=== PATIENT | male | born 1995 | race Caucasian/White ===

== ENCOUNTER 2021-09-20 14:07 | Emergency (ER) | payer OTHER, MEDICAID, SELFPAY ==
[2021-09-20 14:16] VITALS: BP 145/75; PULSE 87; RESP 16; TEMP 36.8; O2SAT 98; BMI 32.3
--- NOTE | 2021-09-20 14:20 | DI.RAD.S_ITS ---
PROCEDURE: XR ANKLE RT MIN 3V INDICATIONS: tripped, felt pop TECHNIQUE: 3 views of the ankle were acquired. COMPARISON: None. FINDINGS: Bones: No fractures or dislocations. Ankle mortise is normally aligned. No suspicious bony lesions. Soft tissues: No tibiotalar joint effusion. Achilles tendon appears normal. IMPRESSION: No acute finding. Dictated by: Figueroa Maldonado M.D. on 09/20/2021 at 14:48 Approved by: Figueroa Maldonado M.D. on 09/20/2021 at 14:49
--- NOTE | 2021-09-20 15:20 | ED_ITS ---
HPI - Extremity Injury (Lower) General Chief Complaint: Extremity Injury, Lower Stated Complaint: right ankle hurts Time Seen by Provider: 09/20/21 14:20 Source: patient Mode of arrival: Ambulatory History of Present Illness HPI Narrative: 26-year-old male nonsmoker with noncontributory medical history presents with a friend and a chief complaint of a right ankle injury suffered last night. He was walking when he inverted his right ankle and now has pain with ambulation. He was evaluated by the medics out on [place] and encouraged to come be seen for an x-ray. He denies any numbness, tingling or weakness. He has no knee or hip pain and is otherwise well and free of complaint Related Data Home Medications Medication Instructions Recorded Confirmed ACETAMINOPHEN 0 mg PO Q4HP #0 03/28/12 Previous Rx's Medication Instructions Recorded DIPHENHYDRAMINE HCL 50 mg PO PRN #10 tab 03/10/13 (Diphenhydramine Hydrochloride) EPINEPHRINE (#EPI EZ PEN) 1 mg IM PRN #1 syr 03/10/13 albuterol sulfate 90 mcg/actuation 1 puff INH Q4HP PRN #18 gm 02/28/16 aerosol inhaler (Ventolin HFA) ondansetron 8 mg disintegrating 8 mg SUBLINGUAL TID #12 odt 05/12/16 tablet (Zofran ODT) fluticasone propionate 50 1 spray INTRANASAL QDAY #1 bot 01/14/17 mcg/actuation nasal spray,suspension (Flonase Allergy Relief) sumatriptan succinate 100 mg 100 mg PO PRN PRN #9 tab 01/14/17 tablet (Imitrex) Allergies Allergy/AdvReac Type Severity Reaction Status Date / Time latex [LATEX] Allergy Unknown Unverified 10/13/17 13:10 brissa [BRISSA] Allergy Unknown Unverified 10/13/17 13:10 Review of Systems Review of Systems Narrative: GENERAL: Denies chills, fatigue, malaise, fever, sweats. HEENT: Denies sinus pain, ear pain, sore throat, difficulty swallowing, dizziness. RESPIRATORY: Denies dyspnea, cough, wheezing, hemoptysis, sputum. CARDIOVASCULAR: Denies chest pain, palpitations, orthopnea, edema, GASTROINTESTINAL: Denies nausea, vomiting, abdominal pain, diarrhea, constipation, melena. : Denies dysuria, frequency, incontinence, hematuria, urinary retention. MUSCULOSKELETAL: See HPI SKIN: Denies rash, skin lesions, or other NEUROLOGIC: Denies weakness, headache, numbness, change in speech, confusion, seizures, incoordination. PSYCHIATRIC: No concerning psychosocial issues. 12 point review of systems is negative except for those stated above Patient History Social History Smoking Status: Never smoker Smoking Status: Never smoker alcohol intake frequency: 0-2 drinks per day Substance Use Type: does not use Exam Narrative Exam Narrative: GEN: AOx3 and in mild distress EYES: Pupils are equal, round, and reactive to light and accommodation. E xtraoccular muscles are intact bilaterally. There is no subconjunctival hemorrhage or exudate. CHEST: Lungs are clear to auscultation bilaterally and free of wheezes, rales, or rhonchi. Heart rate is regular rhythm, there are no murmurs, clicks, rubs, or gallops. There is no chest wall tenderness. ABD: Abdomen is soft and nontender. There is no guarding or rebound. Bowel sounds are normal in all 4 quadrants. There is no mass or organomegaly. EXT: Full but painful range of motion of the right ankle, no ligamentous laxity, no obvious swelling or deformity. This is closed, isolated and tony rovascularly intact SKIN: Warm, pink, and dry. No erythema or rash Initial Vital Signs Initial Vital Signs: Vital Signs Temperature 98.3 F 09/20/21 14:16 Pulse Rate 87 09/20/21 14:16 Respiratory Rate 16 09/20/21 14:16 Blood Pressure 145/75 H 09/20/21 14:16 Pulse Oximetry 98 09/20/21 14:16 Course Orders Ordered: ED Orders 09/20/21 14:20 XR ankle RT min 3V Stat Vital Signs Vital signs: Vital Signs - 8 hr 09/20/21 14:16 Temperature 98.3 F Pulse Rate 87 Respiratory Rate 16 Blood Pressure 145/75 H Pulse Oximetry 98 MDM - Extremity Injury (Lower) Imaging Data Extremity x-ray #1: Radiologist's Impression: Juan Pablo Vargas??26??M??1995 ? Allergy/Adv: latex, brissa Close Ankle X-Ray (Signed) Figueroa Maldonado - 09/20/21 Launch?Image [address] [address] XRay Report Signed Patient: Juan Pablo Vargas MR#: [id number] : 1995 Acct:[id number] Age/Sex: 26 / M Date of Service: 09/20/21 Loc: ED Accession Number: [id number] ?? Procedure: XR ankle RT min 3V Ordering Provider: Tommy Lyon D.O. PROCEDURE:? XR ANKLE RT MIN 3V ? INDICATIONS:? tripped, felt pop ? TECHNIQUE:? 3 views of the ankle were acquired.? ? COMPARISON:? None. ? FINDINGS:? ? Bones:? No fractures or dislocations.? Ankle mortise is normally aligned.? No suspicious bony lesions.? ? Soft tissues:? No tibiotalar joint effusion.? Achilles tendon appears normal.? ? ? IMPRESSION:? No acute finding. ? Dictated by: Figueroa Maldonado M.D. on 09/20/2021 at 14:48 ? ? Approved by: Figueroa Maldonado M.D. on 09/20/2021 at 14:49 ? Discharge Plan Departure Patient Disposition: Home Clinical Impression: Inversion sprain of right ankle Instructions: DI for Ankle Sprain Activity Restrictions/Additional Instructions: *You have been diagnosed with [right ankle sprain. Your history and physical exam are reassuring. X-ray demonstrates no fracture or dislocation *What to do: *Please continue to take your regular medications as directed. [ ] New medication prescriptions sent to your pharmacy: [ ] [ ] New medication written as a paper prescription [ ] No new medications given *Please follow up with your primary care provider in 2-3 days, call for an appointment. Let them know you were seen in the Emergency Department and that we ask that you be seen in follow up. We will electronically transmit a record of today's note if your PCP is in our system *If you do not have a primary care provider please contact the [facility] Resource line at [phone]. They will ask some questions about your medical history and help get you set up with a doctor in the community. *Return to Emergency Department if you should have any new, worsening or concerning symptoms, such as [fever greater than 101 F, shaking chills, worsening pain, persistent vomiting or other bothersome symptoms] Prescriptions: No Action ACETAMINOPHEN 0 mg PO Q4HP Qty: 0 0RF DIPHENHYDRAMINE HCL (Diphenhydramine Hydrochloride) 50 mg PO PRN Qty: 10 1RF EPINEPHRINE (#EPI EZ PEN) 1 mg IM PRN Qty: 1 1RF albuterol sulfate [Ventolin HFA] 90 MCG/PUFF HFA aerosol inhaler 1 puff INH Q4HP PRNQty: 18 3RF ondansetron [Zofran ODT] 8 MG tablet,disintegrating 8 mg Sublingual TID Qty: 12 0RF sumatriptan succinate [Imitrex] 100 MG tablet 100 mg PO PRN PRNQty: 9 1RF fluticasone propionate [Flonase Allergy Relief] 9.9 ML spray,suspension 1 spray Intranasal QDAY Qty: 1 1RF Referrals: Trae Olivier MD [Primary Care Provider] -
[2021-09-20 15:24] VITALS: BP 140/82; PULSE 80; RESP 16; O2SAT 97
== END 2021-09-20 15:24 | disposition home or self-care (01) ==
PROVIDERS: Emergency Provider Emergency Medicine; Family Provider Family Medicine; PCP Family Medicine
DX: S93.401A Sprain of unspecified ligament of right ankle, initial encounter (principal); X50.1XXA Overexertion from prolonged static or awkward postures, initial encounter
CPT/HCPCS: 73610; 99281; 99283

== ENCOUNTER 2022-08-24 22:34 | Emergency (ER) | payer OTHER, MEDICAID, SELFPAY ==
[2022-08-24 23:13] VITALS: BP 140/90; PULSE 87; RESP 18; TEMP 36.6; O2SAT 100; BMI 33.0
--- NOTE | 2022-08-25 00:54 | DI.RAD.S_ITS ---
PROCEDURE: XR THORACIC SPINE 2V INDICATIONS: Left side pain/injury TECHNIQUE: 2 views of the thoracic spine were acquired. COMPARISON: None. FINDINGS: Bones: No fractures or dislocations. No suspicious bony lesions. 12 pairs of ribs are noted, and appear intact where visualized. Sternotomy wires noted Soft tissues: No paravertebral stripe thickening. IMPRESSION: Sternotomy wires, presumed prior cardiac surgery perhaps at a young age. No trauma found. Dictated by: Steve Cardenas M.D. on 08/25/2022 at 1:11 Approved by: Steve Cardenas M.D. on 08/25/2022 at 1:12
--- NOTE | 2022-08-25 00:55 | ED.BACK ---
HPI - Back Pain/Injury General Chief Complaint: Back Pain/Injury Stated Complaint: back pain Time Seen by Provider: 08/25/22 00:12 Source: patient History of Present Illness HPI Narrative: Patient brought here by his brother for left mid back pain/injury. Patient has had physical therapy for his back in the past. But no MRI or surgery. Denies any bowel or bladder incontinence or retention. Denies any saddle paresthesia. Pain does not radiate. No leg numbness tingling or weakness. Patient states 2 weeks ago he was work on his house with overhead work on a sofit. [place] pain in his left scapular area. No chest pain no dyspnea. It got better with Flexeril. Today he was lifting heavy object in the same area left scapular area back pain occurred but relieved with Flexeril. He took 2 doses today. Currently back pain-free. 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 His twin brother had the same. He denies denies any chest pain. No shortness of breath. Related Data Home Medications Medication Instructions Recorded Confirmed ACETAMINOPHEN 0 mg PO Q4HP ##0 03/28/12 Previous Rx's Medication Instructions Recorded DIPHENHYDRAMINE HCL 50 mg PO PRN #10 tabs 03/10/13 (Diphenhydramine Hydrochloride) EPINEPHRINE (#EPI EZ PEN) 1 mg IM PRN ##1 03/10/13 albuterol sulfate 90 mcg/actuation 1 puff INH Q4HP PRN ##18 02/28/16 aerosol inhaler (Ventolin HFA) ondansetron 8 mg disintegrating 8 mg sublingual TID ##12 05/12/16 tablet (Zofran ODT) fluticasone propionate 50 1 spray intranasal QDAY ##1 01/14/17 mcg/actuation nasal spray,suspension (Flonase Allergy Relief) sumatriptan succinate 100 mg 100 mg PO PRN PRN #9 tabs 01/14/17 tablet (Imitrex) cyclobenzaprine 10 mg tablet 10 mg PO TID PRN muscle spasm #20 08/25/22 tabs Allergies Allergy/AdvReac Type Severity Reaction Status Date / Time latex [LATEX] Allergy Unknown Unverified 10/13/17 13:10 brissa [BRISSA] Allergy Unknown Unverified 10/13/17 13:10 Review of Systems Review of Systems Narrative: GENERAL: negative chills, fatigue, malaise, fever, sweats. HEENT: negative sinus pain, ear pain, sore throat RESPIRATORY: negative dyspnea, cough CARDIOVASCULAR: negative chest pain, palpitations GASTROINTESTINAL: negative nausea, vomiting, abdominal pain : negative dysuria, frequency, hematuria MUSCULOSKELETAL: Positive muscle or bony pain SKIN: negative rash, skin lesions NEUROLOGIC: negative weakness, numbness ROS Unobtainable: All systems reviewed & are unremarkable except as noted in HPI and below Patient History Social History Smoking Status: Never smoker Smoking Status: Never smoker alcohol intake frequency: 0-2 drinks per day Substance Use Type: does not use Exam Narrative Exam Narrative: GENERAL: in no distress, not toxic not dyspneic HEAD: Normocephalic. EYES: Pupils equal round NECK: Trachea midline. CARDIOVASCULAR: Regular rate and rhythm without murmurs RESPIRATORY: Clear to auscultation. Breath sounds equal bilaterally. No wheezes, rales, or rhonchi. GASTROINTESTINAL: Abdomen soft, non-tender BACK: No flank tenderness. There is reproducible left periscapular paraspinal/parathoracic muscle tenderness. No midline tenderness or step-off of the cervical thoracic or lumbar spine. No pain with side been left and right or leaning forward or back. NEURO: AOx4. SKIN: Warm and dry PSYCH: Not anxious, is cooperative Initial Vital Signs Initial Vital Signs: Vital Signs Temperature 98 F 08/24/22 23:13 Pulse Rate 87 08/24/22 23:13 Respiratory Rate 18 08/24/22 23:13 Blood Pressure 140/90 08/24/22 23:13 Pulse Oximetry 100 08/24/22 23:13 Oxygen Delivery Method 08/24/22 23:13 Course Orders Ordered: ED Orders 08/25/22 00:54 XR thoracic spine 2V Stat Vital Signs Vital signs: Vital Signs - 8 hr 08/24/22 23:13 08/25/22 02:07 Temperature 98 F Pulse Rate 87 79 Respiratory Rate 18 18 Blood Pressure 140/90 127/76 Pulse Oximetry 100 98 Oxygen Delivery Method Room Air Room Air MDM - Back Pain/Injury Imaging Data X-ray thoracic spine: Radiologist's Impression: [address] [address] XRay Report Signed Patient: Juan Pablo Vargas MR#: [id number] : 1995 Acct:[id number] Age/Sex: 27 / M Date of Service: 08/25/22 Loc: ED Accession Number: [id number] ?? Procedure: XR thoracic spine 2V Ordering Provider: Bhavin Ashley MD PROCEDURE:? XR THORACIC SPINE 2V ? INDICATIONS:? Left side pain/injury ? TECHNIQUE:? 2 views of the thoracic spine were acquired.? ? COMPARISON:? None. ? FINDINGS:? ? Bones:? No fractures or dislocations.? No suspicious bony lesions.? 12 pairs of ribs are noted, and appear intact where visualized.? Sternotomy wires noted ? Soft tissues:? No paravertebral stripe thickening.? ? ? IMPRESSION:? Sternotomy wires, presumed prior cardiac surgery perhaps at a young age.? No trauma found. ? ? Dictated by: Steve Cardenas M.D. on 08/25/2022 at 1:11 ? ? Approved by: Steve Cardenas M.D. on 08/25/2022 at 1:12 ? [facility] Narrative Medical decision making narrative: Patient brought here by his brother for left mid back pain/injury. Patient has had physical therapy for his back in the past. But no MRI or surgery. Denies any bowel or bladder incontinence or retention. Denies any saddle paresthesia. Pain does not radiate. No leg numbness tingling or weakness. Patient states 2 weeks ago he was work on his house with overhead work on a sofit. [place] pain in his left scapular area. No chest pain no dyspnea. It got better with Flexeril. Today he was lifting heavy object in the same area left scapular area back pain occurred but relieved with Flexeril. He took 2 doses today. 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 His twin brother had the same. He denies denies any chest pain. No shortness of breath. After history and exam x-ray of thoracic spine ordered [facility] CC: Mid back pain Complicating co-morbidities: Previous back injury Data collected from: Patient and twin brother Medical records reviewed: No previous visits here for back pain Differential considered: Includes but not limited to muscle strain/bulge disc/shingles/epidural abscess Exam documented above, pertinent findings include: Nontender back muscles Imaging studies independently reviewed: X-ray thoracic spine no acute process Treatments: None indicated at this time. Re-evaluations: 1:47 a.m. Reviewed x-ray results with patient. Patient neurovascularly intact. No neuro deficits. Primary care referral given to patient. Refill for Flexeril provided. Recommended using ibuprofen to supplement for pain control as well. Return precautions reviewed with him. He desires discharge home Discussion: Appropriate for discharge home. Exam and imaging are reassuring. Low risk for epidural abscess no diabetes no IV drug use. No fever. Patient has no neuro deficits. Pain-free at time of exam. Return precautions reviewed with him. Flexeril does relieve his pain. Prescription for refill of Flexeril provided. Nontoxic at discharge Diagnosis: Thoracic back strain Discharge Plan Departure Patient Disposition: Home Clinical Impression: Strain of thoracic back region Instructions: DI for Back Strain or Sprain Activity Restrictions/Additional Instructions: Please continue Flexeril for your back pain. Please do call your family doctor for re-evaluation in a week and may need physical therapy. Or may need MRI of your back if not improving. Return if worse if any questions or concerns. No driving or operating machinery when taking Flexeril/your muscle relaxer. May supplement with ibuprofen Prescriptions: New cyclobenzaprine 10 mg tablet 10 mg PO TID PRN (Reason: muscle spasm) Qty: 20 0RF No Action ACETAMINOPHEN 0 mg PO Q4HP Qty: 0 DIPHENHYDRAMINE HCL (Diphenhydramine Hydrochloride) 50 mg PO PRN Qty: 10 1RF EPINEPHRINE (#EPI EZ PEN) 1 mg IM PRN Qty: 1 1RF albuterol sulfate [Ventolin HFA] 90 MCG/PUFF HFA aerosol inhaler 1 puff INH Q4HP PRNQty: 18 3RF ondansetron [Zofran ODT] 8 MG tablet,disintegrating 8 mg Sublingual TID Qty: 12 0RF sumatriptan succinate [Imitrex] 100 MG tablet 100 mg PO PRN PRNQty: 9 1RF fluticasone propionate [Flonase Allergy Relief] 9.9 ML spray,suspension 1 spray Intranasal QDAY Qty: 1 1RF Referrals: Gianna Chisholm ARNP [Primary Care Provider] - Stand Alone Forms: Patient Portal/API
[2022-08-25 02:07] VITALS: BP 127/76; PULSE 79; RESP 18; O2SAT 98
== END 2022-08-25 02:08 | disposition home or self-care (01) ==
PROVIDERS: Emergency Provider Emergency Medicine; Family Provider Family Medicine; PCP Nurse Practitioner Family
DX: S29.012A Strain of muscle and tendon of back wall of thorax, initial encounter (principal); X58.XXXA Exposure to other specified factors, initial encounter
CPT/HCPCS: 72070; 99283

== ENCOUNTER → 2023-01-15 12:38 | Outpatient (CLI) | payer OTHER, MEDICAID, SELFPAY ==
--- NOTE | 2023-01-15 12:41 | DI.MRI.S_ITS ---
PROCEDURE: MR HIP LT WO CON INDICATIONS: Left HIP PAIN TECHNIQUE: Noncontrast coronal T1 spin echo and STIR through the bony pelvis. Coronal and axial T2 fast spin echo with fat saturation, sagittal T1 spin echo, and oblique axial T2 fast spin echo with fat saturation through the hip. COMPARISON: [facility], MR, MR HIP RT WO CON, 01/15/2023, 13:30. FINDINGS: Image quality: Excellent. Bones and joints: Mild prominence of superior left femoral head neck junction is seen with subtle subcortical edema which can be seen associated with CAM type femoral acetabular impingement. No other area of marrow signal abnormality. No intraosseous lesions or fractures. No avascular necrosis of the femoral heads. The visualized lower lumbar spine appears normally aligned. Tendons and ligaments: Mild distal left gluteus medius and minimus tendinosis at their insertion on greater trochanter is seen, without associated muscle atrophy. The nearby proximal iliotibial band also appears intact. The iliopsoas tendon appears intact, without adjacent bursal fluid collections or evidence for impingement syndrome. The origin of the hamstring tendon is intact at the ischial tuberosity, as well as the associated sacrotuberous ligament. The straight and reflected heads of the rectus femoris muscle origin appear intact, as well as the conjoint tendon. The ligamentum teres appears intact where visualized. Labrum and cartilage: Subtle fraying of superior anterior labrum with signal abnormality at 12 to 1 o'clock position is seen concerning for subtle superior anterior labral tear. Cartilage surface of the femoral head appears of normal thickness. The alpha angle of the femur is within normal limits at less than 55 degrees. Soft tissues: Visualized muscles demonstrate normal bulk and internal signal. Quadratus femoris muscle demonstrates no internal edema to suggest ischiofemoral impingement. The proximal sciatic neurovascular bundle appears normal adjacent to the hamstring tendons. No free pelvic fluid. Bladder wall thickness is normal. Genitourinary structures and bowel loops appear normal where visualized. IMPRESSION: 1. Mild prominence of superior left femoral head neck junction with subtle subcortical edema which can be seen associated with cam type femoral acetabular impingement. No fracture or dislocation. No evidence of avascular necrosis of femoral head. 2. Distal left gluteus medius and minimus tendinosis at their insertions on greater trochanter. No other muscle or tendon signal abnormalities. 3. Finding is concerning for subtle superior anterior left hip labral tear at 12 to 1 o'clock position. Dictated by: Bobby Torres M.D. on 01/15/2023 at 14:08 Approved by: Bobby Torres M.D. on 01/15/2023 at 14:12
--- NOTE | 2023-01-15 12:41 | DI.MRI.S_ITS ---
PROCEDURE: MR HIP RT WO CON INDICATIONS: Right HIP PAIN TECHNIQUE: Noncontrast coronal T1 spin echo and STIR through the bony pelvis. Coronal and axial T2 fast spin echo with fat saturation, sagittal T1 spin echo, and oblique axial T2 fast spin echo with fat saturation through the hip. COMPARISON: [facility], MR, MR HIP LT WO CON, 01/15/2023, 13:30. FINDINGS: Image quality: Excellent. Bones and joints: Mild periarticular osteophyte formation at the right hip joint Bone marrow of the pelvic ring and proximal femurs show normal signal throughout. No intraosseous lesions or fractures. No avascular necrosis of the femoral heads. The visualized lower lumbar spine appears normally aligned. Tendons and ligaments: The gluteus medius and minimus tendons appear intact, without associated muscle atrophy. The nearby proximal iliotibial band also appears intact. The iliopsoas tendon appears intact, without adjacent bursal fluid collections or evidence for impingement syndrome. The origin of the hamstring tendon is intact at the ischial tuberosity, as well as the associated sacrotuberous ligament. The straight and reflected heads of the rectus femoris muscle origin appear intact, as well as the conjoint tendon. The ligamentum teres appears intact where visualized. Labrum and cartilage: Vertically oriented linear high T2 signal intensity traverses the lateral and posterior aspect of the labrum. Cartilage surface of the femoral head appears of normal thickness. The alpha angle of the femur is within normal limits at less than 55 degrees. Soft tissues: Visualized muscles demonstrate normal bulk and internal signal. Quadratus femoris muscle demonstrates no internal edema to suggest ischiofemoral impingement. The proximal sciatic neurovascular bundle appears normal adjacent to the hamstring tendons. No free pelvic fluid. Bladder wall thickness is normal. Genitourinary structures and bowel loops appear normal where visualized. IMPRESSION: 1. 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 Dictated by: Lisa Garber M.D. on 01/15/2023 at 16:23 Approved by: Lisa Garber M.D. on 01/15/2023 at 16:25
== END ==
PROVIDERS: Family Provider Family Medicine; PCP Nurse Practitioner Family; Referring Provider Physician Assistant Medical; Visit Provider Physician Assistant Medical
DX: M17.11 Unilateral primary osteoarthritis, right knee (principal); M25.551 Pain in right hip; M25.552 Pain in left hip
CPT/HCPCS: 73721